=== PATIENT | female | born 1935 | race Native Hawaiian/Other Pacific Islander ===

== ENCOUNTER 2017-01-12 10:02 | Outpatient (CLI) | payer OTHER | END 2017-01-12 10:36 | disposition short-term general hospital (02) | LOC: AMB 10:02 | DX: M25.552 Pain in left hip (principal); M25.551 Pain in right hip | CPT/HCPCS: A0425; A0429 ==

== ENCOUNTER 2017-03-19 11:21 | Inpatient (IN) | payer OTHER ==
[2017-03-20 05:39] LABS: POTASSIUM 3.2 mmol/L (3.6-5.2)
[2017-03-20 06:26] LABS: PLATELET COUNT 212 K/uL (152-353)
== END 2017-03-25 13:01 | disposition still patient (30) ==
LOC: PAVB 11:21
PROVIDERS: ADMIT Internal Medicine
DX: S32.401A Unspecified fracture of right acetabulum, initial encounter for closed fracture (principal); S32.502A Unspecified fracture of left pubis, initial encounter for closed fracture; S42.301A Unspecified fracture of shaft of humerus, right arm, initial encounter for closed fracture; M62.81 Muscle weakness (generalized); R26.89 Other abnormalities of gait and mobility; R48.9 Unspecified symbolic dysfunctions
CPT/HCPCS: 80053; 80061; 83735; 84443; 85027; 87015; 87045; 87081; 87205; 87324; 87328; 87329; 87449; 87899

== ENCOUNTER 2017-03-25 14:09 | Inpatient (IN) | payer OTHER ==
[2017-04-05 14:55] LABS: PLATELET COUNT 272 K/uL (152-353)
[2017-04-05 15:03] LABS: POTASSIUM 5.6 mmol/L (3.6-5.2)
== END 2017-04-24 09:24 | disposition still patient (30) ==
LOC: PAVB 14:09
PROVIDERS: ADMIT Internal Medicine
DX: S32.401A Unspecified fracture of right acetabulum, initial encounter for closed fracture (principal); S32.502A Unspecified fracture of left pubis, initial encounter for closed fracture; S42.301A Unspecified fracture of shaft of humerus, right arm, initial encounter for closed fracture; M62.81 Muscle weakness (generalized); R26.89 Other abnormalities of gait and mobility; R48.9 Unspecified symbolic dysfunctions
CPT/HCPCS: 80048; 81000; 83735; 85014; 85018; 85027; G0283-GO

== ENCOUNTER 2017-04-06 12:39 | Outpatient (CLI) | payer OTHER | END 2017-04-06 13:40 | disposition home or self-care (01) | LOC: LAB 12:39 | DX: E83.42 Hypomagnesemia (principal) | CPT/HCPCS: 83735 ==

== ENCOUNTER 2017-04-24 10:01 | Inpatient (IN) | payer OTHER ==
[2017-05-08] MEDS ORDERED: DOC-Q-LAX1 TAB OR (02:56)
[2017-05-08] MEDS ORDERED: IMODIUM A-D2 M2 PO (03:01)
[2017-05-08] MEDS ORDERED: ATTALIQ6 PO (03:03)
[2017-05-08] MEDS ORDERED: NITROSTAT0.4 MG SL (03:05)
[2017-05-08] MEDS ORDERED: ONDA4TAB3 PO ×2 (03:06→03:07)
[2017-05-08] MEDS ORDERED: MULT VITAMI1 OR (03:16)
[2017-05-08] MEDS ORDERED: ASCO500T18 PO (03:17)
[2017-05-08] MEDS ORDERED: ZINC220 MG OR (03:19)
[2017-05-08] MEDS ORDERED: ASPIR-8181 MG OR (03:20)
[2017-05-08] MEDS ORDERED: DONE5TAB PO ×2 (03:26→03:27)
[2017-05-08] MEDS ORDERED: LEXAPRO20 MG PO (03:39)
[2017-05-08] MEDS ORDERED: TRICOR145 M1 PO (03:40)
[2017-05-08] MEDS ORDERED: FENT12DI3 TD (03:42)
[2017-05-08] MEDS ORDERED: FURO40TA93 PO (03:43)
[2017-05-08] MEDS ORDERED: GABA300C2 PO (03:44)
[2017-05-08] MEDS ORDERED: UNITH DIRECT112 MCG PO (03:46)
[2017-05-08] MEDS ORDERED: MAG OXIDE400 M2 OR (03:47)
[2017-05-08] MEDS ORDERED: MEGESTROL AC OR (03:48)
[2017-05-08] MEDS ORDERED: MONT10TA PO (03:49)
[2017-05-08] MEDS ORDERED: OMEP40CA PO (03:53)
[2017-05-08] MEDS ORDERED: ZANTAC 75 PO (03:57)
[2017-05-08] MEDS ORDERED: CARV12.5 PO (04:00)
[2017-05-11] MEDS ORDERED: PROCRIT IJ (22:18)
[2017-05-11] MEDS ORDERED: DOCU100C10 PO (22:20)
[2017-05-11] MEDS ORDERED: DENO60SO SC (22:22)
[2017-05-11] MEDS ORDERED: DIPH2.5T76 PO (22:24)
[2017-05-11] MEDS ORDERED: HYDR10TA47 PO (22:27)
[2017-05-11] MEDS ORDERED: HYDROXYZ HCL50 MG PO (22:29)
[2017-05-11] MEDS ORDERED: ALBUSOL IN (22:30)
[2017-05-11] MEDS ORDERED: ACETAMINOPHEN500 M2 PO (22:32)
[2017-05-11] MEDS ORDERED: LIDOCAINE51 EX (22:33)
[2017-05-11] MEDS ORDERED: CULTURELLE ADVA1 CAP PO (22:34)
== END 2017-05-25 09:43 | disposition still patient (30) ==
LOC: PAVB 10:01
PROVIDERS: ADMIT Internal Medicine

== ENCOUNTER 2017-04-30 05:49 | Outpatient (CLI) | payer OTHER | END 2017-04-30 19:06 | disposition home or self-care (01) | LOC: LAB 05:49 | DX: D64.9 Anemia, unspecified (principal) | CPT/HCPCS: 36415; 83735; 85014; 85018 ==

== ENCOUNTER 2017-05-06 15:33 | Outpatient (CLI) | payer OTHER | END 2017-05-06 16:35 | disposition home or self-care (01) | LOC: RAD 15:33 | DX: R09.3 Abnormal sputum (principal) | CPT/HCPCS: 71045 ==

== ENCOUNTER 2017-05-07 10:05 | Inpatient (IN) | payer OTHER ==
[~2017-05-07] VITALS: Ht 162.6 cm; Wt 54.9 kg
[2017-05-07 12:34] LABS: PLATELET COUNT 224 K/uL (152-353)
[2017-05-07 13:16] LABS: POTASSIUM 3.3 mmol/L (3.6-5.2)
[2017-05-07 14:32] VITALS: BP 134/47; TEMP 98.6; Ht 162.6 cm; Wt 54.9 kg
[2017-05-07 16:00] VITALS: BP 104/66; TEMP 97.4
[2017-05-07 20:00] VITALS: BP 122/69; TEMP 98.7
[2017-05-08] VITALS: BP 129/48; TEMP 99.1
[2017-05-08] MEDS ORDERED: DOC-Q-LAX1 TAB OR (02:56)
[2017-05-08] MEDS ORDERED: IMODIUM A-D2 M2 PO (03:01)
[2017-05-08] MEDS ORDERED: ATTALIQ6 PO (03:03)
[2017-05-08] MEDS ORDERED: NITROSTAT0.4 MG SL (03:05)
[2017-05-08] MEDS ORDERED: ONDA4TAB3 PO ×2 (03:06→03:07)
[2017-05-08] MEDS ORDERED: MULT VITAMI1 OR (03:16)
[2017-05-08] MEDS ORDERED: ASCO500T18 PO (03:17)
[2017-05-08] MEDS ORDERED: ZINC220 MG OR (03:19)
[2017-05-08] MEDS ORDERED: ASPIR-8181 MG OR (03:20)
[2017-05-08] MEDS ORDERED: DONE5TAB PO ×2 (03:26→03:27)
[2017-05-08] MEDS ORDERED: LEXAPRO20 MG PO (03:39)
[2017-05-08] MEDS ORDERED: TRICOR145 M1 PO (03:40)
[2017-05-08] MEDS ORDERED: FENT12DI3 TD (03:42)
[2017-05-08] MEDS ORDERED: FURO40TA93 PO (03:43)
[2017-05-08] MEDS ORDERED: GABA300C2 PO (03:44)
[2017-05-08] MEDS ORDERED: UNITH DIRECT112 MCG PO (03:46)
[2017-05-08] MEDS ORDERED: MAG OXIDE400 M2 OR (03:47)
[2017-05-08] MEDS ORDERED: MEGESTROL AC OR (03:48)
[2017-05-08] MEDS ORDERED: MONT10TA PO (03:49)
[2017-05-08] MEDS ORDERED: OMEP40CA PO (03:53)
[2017-05-08] MEDS ORDERED: ZANTAC 75 PO (03:57)
[2017-05-08 04:00] VITALS: BP 116/44; BP 124/58; TEMP 98.9
[2017-05-08] MEDS ORDERED: CARV12.5 PO (04:00)
[2017-05-08 08:00] VITALS: BP 138/52; TEMP 98
[2017-05-08 12:00] VITALS: BP 134/45; TEMP 98
[2017-05-08 16:00] VITALS: BP 134/45; TEMP 98
[2017-05-08 20:00] VITALS: BP 154/44; TEMP 98.6
[2017-05-09] VITALS: BP 168/54; TEMP 98.3
[2017-05-09 04:00] VITALS: BP 158/53; TEMP 98.4
[2017-05-09 08:00] VITALS: BP 149/56; TEMP 98.7
[2017-05-09 12:00] VITALS: BP 128/52; TEMP 97.8
[2017-05-09 16:00] VITALS: BP 156/67; TEMP 98
[2017-05-09 20:00] VITALS: BP 144/63; TEMP 98.2
[2017-05-10] VITALS: BP 138/64; TEMP 98.4
[2017-05-10 04:00] VITALS: BP 144/50; TEMP 98.6
[2017-05-10 06:38] LABS: PLATELET COUNT 236 K/uL (152-353)
[2017-05-10 06:45] LABS: POTASSIUM 3.6 mmol/L (3.6-5.2)
[2017-05-10 08:00] VITALS: BP 152/97; TEMP 98.3
[2017-05-10 12:00] VITALS: BP 137/42; TEMP 99
[2017-05-10 16:00] VITALS: BP 137/42; TEMP 99
[2017-05-10 20:00] VITALS: BP 185/73; TEMP 98.5
[2017-05-11] VITALS: BP 93/58; TEMP 98.3
[2017-05-11 04:00] VITALS: BP 168/70; TEMP 98.1
[2017-05-11 08:00] VITALS: BP 156/67; TEMP 98.5
[2017-05-11 11:48] VITALS: BP 144/61; TEMP 98.3
[2017-05-11] MEDS ORDERED: PROCRIT IJ (22:18)
[2017-05-11] MEDS ORDERED: DOCU100C10 PO (22:20)
[2017-05-11] MEDS ORDERED: DENO60SO SC (22:22)
[2017-05-11] MEDS ORDERED: DIPH2.5T76 PO (22:24)
[2017-05-11] MEDS ORDERED: HYDR10TA47 PO (22:27)
[2017-05-11] MEDS ORDERED: HYDROXYZ HCL50 MG PO (22:29)
[2017-05-11] MEDS ORDERED: ALBUSOL IN (22:30)
[2017-05-11] MEDS ORDERED: ACETAMINOPHEN500 M2 PO (22:32)
[2017-05-11] MEDS ORDERED: LIDOCAINE51 EX (22:33)
[2017-05-11] MEDS ORDERED: CULTURELLE ADVA1 CAP PO (22:34)
== END 2017-05-11 14:50 | DRG 195 ==
LOC: MED/SURG 10:05
PROVIDERS: ADMIT Internal Medicine
DX: J18.8 Other pneumonia, unspecified organism (principal); G30.8 Other Alzheimer's disease; F02.80 Dementia in other diseases classified elsewhere, unspecified severity, without behavioral disturbance, psychotic disturbance, mood disturbance, and anxiety; I48.91 Unspecified atrial fibrillation; J44.9 Chronic obstructive pulmonary disease, unspecified; E03.8 Other specified hypothyroidism; Z86.73 Personal history of transient ischemic attack (TIA), and cerebral infarction without residual deficits; D64.89 Other specified anemias; M81.8 Other osteoporosis without current pathological fracture; F41.8 Other specified anxiety disorders; K21.9 Gastro-esophageal reflux disease without esophagitis
CPT/HCPCS: 80053; 85027; 87040; 87077; 87185; 87186; 87205; 93005; 94640; 94664; 94760; 96366; 96367; J1642; J1940; J1956

== ENCOUNTER 2017-05-11 21:40 | Inpatient (IN) | payer OTHER ==
[~2017-05-11] VITALS: Ht 162.6 cm; Wt 55.8 kg
[~2017-05-11 21:40] MED LIST: ASCO500T18 PO; ASPIR-8181 MG OR; ATTALIQ6 PO; CARV12.5 PO; DOC-Q-LAX1 TAB OR; DONE5TAB PO; FENT12DI3 TD; FURO40TA93 PO; GABA300C2 PO; IMODIUM A-D2 M2 PO; LEXAPRO20 MG PO; MAG OXIDE400 M2 OR; MEGESTROL AC OR; MONT10TA PO; MULT VITAMI1 OR; NITROSTAT0.4 MG SL; OMEP40CA PO; ONDA4TAB3 PO; TRICOR145 M1 PO; UNITH DIRECT112 MCG PO; ZANTAC 75 PO; ZINC220 MG OR
[2017-05-11 22:04] LABS: PLATELET COUNT 235 K/uL (152-353)
[2017-05-11 22:08] VITALS: BP 126/59; TEMP 98.6
[2017-05-11] MEDS ORDERED: PROCRIT IJ (22:18)
[2017-05-11] MEDS ORDERED: DOCU100C10 PO (22:20)
[2017-05-11] MEDS ORDERED: DENO60SO SC (22:22)
[2017-05-11] MEDS ORDERED: DIPH2.5T76 PO (22:24)
[2017-05-11] MEDS ORDERED: HYDR10TA47 PO (22:27)
[2017-05-11 22:29] LABS: POTASSIUM 3.4 mmol/L (3.6-5.2)
[2017-05-11] MEDS ORDERED: HYDROXYZ HCL50 MG PO (22:29)
[2017-05-11 22:30] VITALS: BP 146/59
[2017-05-11] MEDS ORDERED: ALBUSOL IN (22:30)
[2017-05-11] MEDS ORDERED: ACETAMINOPHEN500 M2 PO (22:32)
[2017-05-11] MEDS ORDERED: LIDOCAINE51 EX (22:33)
[2017-05-11] MEDS ORDERED: CULTURELLE ADVA1 CAP PO (22:34)
[2017-05-11 23:00] VITALS: BP 111/60
[2017-05-12 01:45] VITALS: BP 122/55; TEMP 97.5; Ht 162.6 cm; Wt 55.8 kg
[2017-05-12 04:00] VITALS: BP 116/50; TEMP 98
[2017-05-12 09:10] VITALS: BP 140/49; TEMP 97.7
[2017-05-12 13:06] VITALS: BP 121/50; TEMP 98
[2017-05-12 20:00] VITALS: BP 141/79; TEMP 98.1
[2017-05-13] VITALS: BP 119/65; TEMP 98.2
[2017-05-13 06:00] VITALS: BP 130/54; TEMP 97.8
[2017-05-13 16:57] VITALS: BP 124/76; TEMP 98.8
[2017-05-14 07:56] VITALS: BP 117/65; TEMP 98.1
[2017-05-14 12:00] VITALS: BP 126/48; TEMP 98.3
== END 2017-05-14 12:45 | disposition home or self-care (01) | DRG 292 ==
LOC: ED 21:40 → MED/SURG 05-12
PROVIDERS: ADMIT Internal Medicine
DX: I50.31 Acute diastolic (congestive) heart failure (principal); K56.7 Ileus, unspecified; J44.1 Chronic obstructive pulmonary disease with (acute) exacerbation; I10 Essential (primary) hypertension; E03.8 Other specified hypothyroidism; I48.91 Unspecified atrial fibrillation; K21.9 Gastro-esophageal reflux disease without esophagitis; D64.89 Other specified anemias; R09.3 Abnormal sputum; R41.82 Altered mental status, unspecified
CPT/HCPCS: 36591; 71045; 74022; 80053; 81000; 83880; 85027; 87088; 93005; 93306; 94760; 96365; 96372; 96375; 99284; J0696; J1642; J1650; J1940; J2405; J3480; J3490

== ENCOUNTER 2017-05-14 14:13 | Outpatient (CLI) | payer OTHER ==
[~2017-05-14 14:13] MED LIST changes: +ACETAMINOPHEN500 M2 PO; +ALBUSOL IN; +CULTURELLE ADVA1 CAP PO; +DENO60SO SC; +DIPH2.5T76 PO; +DOCU100C10 PO; +HYDR10TA47 PO; +HYDROXYZ HCL50 MG PO; +LIDOCAINE51 EX; +PROCRIT IJ
== END 2017-05-14 19:43 | disposition home or self-care (01) ==
LOC: LAB 14:13
DX: R41.82 Altered mental status, unspecified (principal)
CPT/HCPCS: 81000; 87088

== ENCOUNTER 2017-05-20 04:45 | Outpatient (CLI) | payer OTHER ==
[2017-05-20 11:38] LABS: POTASSIUM 2.7 mmol/L (3.6-5.2)
== END 2017-05-20 19:06 | disposition home or self-care (01) ==
LOC: LAB 04:45
PROVIDERS: Internal Medicine
DX: E87.1 Hypo-osmolality and hyponatremia (principal); R06.9 Unspecified abnormalities of breathing; E03.8 Other specified hypothyroidism
CPT/HCPCS: 36415; 80048; 83880; 84443

== ENCOUNTER 2017-05-25 10:46 | Inpatient (IN) | payer OTHER | END 2017-05-28 01:00 | disposition E | LOC: PAVB 10:46 | PROVIDERS: ADMIT Internal Medicine ==